=== PATIENT | female | born 2000 | race Two or more races ===

== ENCOUNTER 2025-03-12 05:40 | Day surgery (SDC) | payer MEDICAID, SELFPAY ==
--- NOTE | 2025-03-07 08:04 | EKG_ITS ---
[facility] Test Date: 2025-03-07 Pat Name: VANIA KELLEY Department: Room: - Gender: Female Customer Marketing Assistant: [facility] : 2000 Requested By: Rickey De Los Santos Order Number: [id number] Reading MD: Rickey De Los Santos Measurements Intervals [place] Rate: 80 P: 62 WI: 149 QRS: 31 QRSD: 80 T: 38 QT: 369 QTc: 427 Interpretive Statements SINUS RHYTHM WITH SINUS ARRHYTHMIA No previous ECG available for comparison /store/[id number]/[id number].pdf
[2025-03-07 11:20] VITALS: BMI 33.6
[2025-03-07 11:59] LABS: Collection Type, Urine Clean Catch
[2025-03-07 13:16] LABS: HCG Qualitative,Urine Negative
[2025-03-07 13:18] LABS: Basophils % (Auto) 0 % (0-2.5); Bilirubin,Urine Negative (Negative); Blood,Urine Negative (Negative); Clarity,Urine Clear (Clear/Hazy); Color,Urine Lt-Yellow (Lt Yel-Yel); Eosinophils # (Auto) 0.2 Thou/mm3 (0.0-0.5); Eosinophils % (Auto) 2 % (0-10); Glucose, Urine Negative (Negative); Hematocrit 38.1 % (36.0-46.0); Hemoglobin 12.8 g/dL (12.0-16.0); Immature Granulocytes % (Auto) 0 % (0-0); Immature Granulocytes Auto 0.02 Thou/mm3 (0.00-0.00); Ketones,Urine Negative (Negative); Leukocyte Esterase,Urine Negative (Negative); Lymphocytes # (Auto) 3.4 Thou/mm3 (1.0-4.8); Lymphocytes % (Auto) 36 % (10-50); Mean Corpuscular HGB Conc 33.6 g/dl (31.0-37.0); Mean Corpuscular Hemoglobin 31.4 pg (25.0-35.0); Mean Corpuscular Volume 94 fL (80-100); Monocytes # (Auto) 0.5 Thou/mm3 (0.0-0.8); Monocytes % (Auto) 5 % (0-12); Neutrophils # (Auto) 5.4 Thou/mm3 (1.8-7.7); Neutrophils % (Auto) 57 % (37-80); Nitrite,Urine Negative (Negative); Nucleated Red Blood Cell % 0 /100 WBC (0); PH,Urine 5.5 (5.0-7.0); Platelet Count 305 Thou/mm3 (140-440); Protein,Urine Negative (Neg - Trace); RBC,Urine 3 /hpf (0-3); RDW Standard Deviation 41.2 fL (36.4-46.3); Red Blood Count 4.07 Miln/mm3 (4.00-5.20); Specific Gravity,Urine 1.019 (1.001-1.035); Squamous Epithelial Cell,Urine 1 /hpf (0-5); Urobilinogen,Urine Negative mg/dL (0.0-1.0); WBC,Urine 1 /hpf (0-5); White Blood Count 9.4 Thou/mm3 (3.6-11.0)
[2025-03-07 13:48] LABS: Alanine Aminotransferase 14 U/L (10-49); Albumin, Serum 4.3 gm/dL (3.5-5.0); Albumin/Globulin Ratio 1.7 (1.2-2.2); Alkaline Phosphatase 70 U/L (46-116); Anion Gap 10 (7-16); Aspartate Amino Transferase 15 U/L (0-34); BUN/Creatinine Ratio 12 Ratio (12-20); Bilirubin,Total 0.4 mg/dL (0.3-1.2); Blood Urea Nitrogen 7 mg/dL (9-23); Calcium 8.7 mg/dL (8.3-10.6); Calcium (Corrected) 8.7 mg/dL (8.5-10.1); Carbon Dioxide 23.6 mMol/L (20.0-31.0); Chloride 108 mMol/L (98-107); Creatinine (Component) 0.6 mg/dL (0.6-1.3); Globulin 2.6 gm/dL (2.3-3.5); Glucose 95 mg/dL (74-106); Osmolality,Calculated 281 (275-295); Potassium 3.6 mMol/L (3.4-5.1); Sodium 142 mMol/L (136-145); Total Protein 6.9 gm/dL (5.7-8.2); eGFR > 60 See Note
[2025-03-12] VITALS (8 sets, daily range): BP systolic 106–130; BP diastolic 72–82; PULSE 96–112; RESP 16–20; TEMP 36.5–36.7; O2SAT 97–100; BMI 33.7
--- NOTE | 2025-03-12 08:59 | SUR.PHASEI ---
0859: Pt. AAOx4, vitals stable, breathing unlabored, no complaint of pain or nausea, dressing to right armpit CDI, no active bleed noted, bilateral radial pulses strong and regular, report received from MD Gautam and Doron JACKSON.
--- NOTE | 2025-03-12 09:02 | ESOP_ITS ---
Date of Procedure 03/12/25 Pre Op Diagnosis Right axillary tail mass painful Post Op Diagnosis Same. Procedure Partial mastectomy right axillary tail dated 03/12/2025 Findings This patient has a 10 cm x 7 cm x 6 cm axillary tail which is quite painful. Patient request removal of the axillary tail mass. Procedure Description The patient is interviewed in the preop area and site and side were marked. The procedure was discussed in great detail with the patient and the family member. All questions were answered and informed consent is obtained. Patient was then taken to the operating room and patient is positioned supine on the operating table. The general anesthesia was administered in a satisfactory manner. Patient is prepped and draped in usual manner. The right axillary tail mass is identified. The flaps were drawn on the axillary breast area and local anesthesia 0.5% Marcaine with epinephrine is infiltrated. Curvilinear elliptical incision is made at base of the axilla. The medial and lateral flaps were developed to the level of the breast and subcutaneous tissue. The flaps are extended as needed. A margin is a included in the resection. Skin were all divided. Care was taken to protect the axillary nerves. The entire mass is removed. Is made above the breast tissue as well as adipose tissue. There was no palpable malignant appearing mass in this excised tissue. After removal of the mass the excision area is examined and there were no palpable suspicious masses in that area. The operative field is thoroughly irrigated and hemostasis is achieved. Specimen is sent off for pathologic examination. The breast tissue and subcutaneous tissues approximated by 3-0 Vicryl interrupted stitches. Skin is approximated by 4-0 Monocryl continuous subcuticular stitches. Steritapes are applied. Patient tolerated the procedure very well complications none. Anesthesia GETA Drains None. Implants None. Pathology / specimen Other (Right axillary breast partial mastectomy) Estimated Blood Loss 5 Condition Stable Disposition PACU Surgeon Rickey De Los Santos MD Surgical Staff Operation Date: 03/12/25 07:30 <No data on this case meets the specified criteria> Pressure Tester Operator CADEN Sanchez RN home care consultant [facility] research food technologist
--- NOTE | 2025-03-12 09:55 | SUR.PHASEII ---
0955: Pt. AAOx4, vitals stable, breathing unlabored, no complaint of pain or nausea, dressing to right armpit CDI, no active bleed noted, pt. tolerated sips fo water well, pt. ambulated to wheelchair with steady gait and no assist, no complications. Gave discharge instructions to the pt. and her ride, both verbalized understanding and had no further questions. Pt. left with all personal belongings.
== END 2025-03-12 09:55 | disposition home or self-care (01) ==
PROVIDERS: Anesthesiology; Referring Provider Specialist; Visit Provider Specialist
PROC: (CPT 19301; principal; 2025-03-12 07:30)
DX: N63.31 Unspecified lump in axillary tail of the right breast (principal)
CPT/HCPCS: 19301; 36415; 80053; 81001; 81025; 85025; 85730; 93005; A4217; A4649; J1885; J2250; J2405; J2704; J2765; J3010; J3490

== ENCOUNTER 2025-06-15 09:23 | Outpatient (AMB) | payer MEDICAID, SELFPAY ==
--- NOTE | 2025-06-15 09:55 | AMB.OBINITIA ---
Vital Signs 06/15/25 09:56 Height 1.6 m Height Method Measured Weight 88.224 kg Weight Measurement Method Standing Scale BMI 34.4 BP 119/83 Blood Pressure Source Automatic Cuff Blood Pressure Location Right Upper Arm Position Sitting Respiration 17 Pulse 99 Pulse Source Monitor Temp 98.2 F Temp Source Temporal Artery Scan Pulse Oximetry (%) 99 Oxygen Delivery Method Room Air Allergies/Home Meds Allergies & Medications Allergies No Known Allergies Allergy (Verified 06/15/25 09:56) Medication Reconciliation vits no.126-ferrous fum 28 mg iron-folic acid 800 mcg tablet (Classic ) tab PO 06/15/25 [History Confirmed 06/15/25] Intake Visit Data Collection New Patient or Established: Established Patient (seen at [facility] within 3 years) Reason for Visit:: OBI Consent obtained for Telemed Visit: No Seen by Clinical Staff ONLY (RN/MA): No Bulk Picker Required: Yes Bulk Picker's name/title: BIB WILLARD Do You Feel Safe at Home: Yes Authorities Contacted: N/A PCP or OBGYN visit in last 3 months: Yes Date of Last PCP or OBGYN visit: 03/12/25 Hx Now: Yes Are you currently on any form of Control: No Last menstrual period: 03/06/25 Pain Present Currently: No Pain Scale Used: Lopez-Abraham/Numerical Pain scale:: 0 Smoking Status Smoking Status: Never smoker Questionnaires Covid-19 Vaccine Questionnaire Has patient been vacinated for Covid-19 Have you been vacinated for Covid-19: No PHQ-9 PHQ-2 Over the last 2 weeks, how often have you been bothered by any of the following problems? 1. Little interest or pleasure in doing things: not at all 2. Feeling down, depressed, or hopeless: not at all Total score: 0 PHQ-9 3. Trouble falling or staying asleep, or sleeping too much: Not at all 4. Feeling tired or having little energy: Not at all 5. Poor appetite or overeating: Not at all 6. Feeling bad about yourself - or that you are a failure or have let yourself or your family down: Not at all 7. Trouble concentrating on things, such as reading the newspaper or watching television: Not at all 8. Moving or speaking so slowly that other people could have noticed? - Or the opposite - being so fidgety or restless that you have been moving around a lot more than usual: not at all 9. Thoughts that you would be better off or of hurting yourself in some way: Not at all Total score: 0 If you checked off any problems, how difficult have these problems made it for you to do your work, take care of things at home, or get along with other people?: not difficult at all Source: Developed by Drs. Danny Sanchez, Dora Nails, Jerzy Jain and colleagues, with an educational brooke from [employer]. Social History Living Situation History Marital Status: Life Partner Lives With: Family Housing: House Tobacco History Smoking Status: Never smoker Alcohol History Alcohol Intake: Never Domestic Abuse History Do You Feel Safe at Home: Yes [employer]: Past Medical History Past Medical History: Yes Hx Neurological Disorders, No Hx Cardiac Disorders, No Hx Cancer, No Hx Blood Disorders, Yes Hx Gastrointestinal Disorders, No Hx Renal Disease, No Hx Diabetes Mellitus Type 1 and No Hx Diabetes Mellitus Type 2 Office Procedures OB Clinic LOC & Office Proc's Nursing/Assessment Patient Status: Established Patient OB Clinic Nursing Assessment: Medication Reconciliation, Update PMH in EMR and Vital Signs OB Clinic Coordination of Care: Complex Care and Chronic Disease 1-5, Consent,records obtained, informed consent and Education Simp Pt/Fam Special Needs: Heart tones Established Patient Charge Established Patient Point Assignment: 105 Established Patient Point Charge: EP Level 3 (80-115) Results Urine HCG Urine HCG Positive Last Edit by Millie Salas MA on 06/15/25 10:08 Assessment & Plan Diagnosis / Problem List (1) Uterine size date discrepancy : Status: Acute (2) Supervision of high risk , unspecified, first trimester: Status: Acute
[2025-06-15 09:56] VITALS: BP 119/83; PULSE 99; RESP 17; TEMP 36.8; O2SAT 99; BMI 34.4
== END 2025-06-15 10:16 | disposition home or self-care (01) ==
LOC: HODSOBC 09:23
PROVIDERS: Supervising Provider Obstetrics & Gynecology; Visit Provider Obstetrics & Gynecology
DX: O09.891 Supervision of other high risk pregnancies, first trimester (principal); O26.841 Uterine size-date discrepancy, first trimester; Z3A.00 Weeks of gestation of pregnancy not specified
CPT/HCPCS: 99213; G0463

== ENCOUNTER 2025-06-22 15:07 | Emergency (ER) | payer MEDICAID, SELFPAY ==
[2025-06-22 15:53] VITALS: BP 111/75; PULSE 106; RESP 18; TEMP 37.1; O2SAT 99
--- NOTE | 2025-06-22 16:14 | EDNOTE_ITS ---
ED Abdominal Pain RME/HPI General Stated complaint: ABD PAIN Time seen by provider: 06/22/25 16:06 Arrival date/time: 06/22/25 15:07 Source: patient, RN notes reviewed and old records reviewed Mode of arrival: ambulatory Limitations: no limitations RME / HPI RME / HPI narrative: approx 18 weeks gestation presents to ED requesting surgery referral. Patient states she was diagnosed with gallstones during outside ED visit on 05/30. She had follow-up with PCP and OB but has not been referred to a general surgeon. Patient denies abdominal pain at this time. No fever, vomiting or related symptoms reported. No medications or treatments today. Related Data Home Medications ?Medication ?Instructions ?Recorded ?Confirmed vits no.126-ferrous fum tab PO 06/15/2506/15 28 mg iron-folic acid 800 mcg tablet (Classic ) Previous Rx's ?Medication ?Instructions ?Recorded acetaminophen 500 mg tablet 1,000 mg (2 x 500 mg) PO Q 6H PRN 06/22/25 (Tylenol Extra Strength) pain #30 tabs ondansetron 4 mg disintegrating 4 mg PO Q6H PRN nausea and 06/22/25 tablet vomiting #10 tabs Allergies Allergy/AdvReac Type Severity Reaction Status Date / Time No Known Allergies Allergy Verified 06/15/25 09:56 Review of Systems Review of Systems Systems Reviewed: All systems reviewed, normal except as documented Constitutional Constitutional: Denies chills and Denies fever(s) Cardiovascular Cardiovascular: Denies chest pain and Denies dyspnea Respiratory Respiratory: Denies dyspnea Gastrointestinal Gastrointestinal: Denies abdominal pain, Denies loose stools, Denies nausea and Denies vomiting Genitourinary Genitourinary: Denies abnormal vaginal bleeding, Denies dysuria and Denies pelvic pain Past Medical History Surgical History OTHER SURGICAL HX: axillary tail mass removal Social History SMOKING STATUS: Never smoker SUBSTANCE USE: does not use ALCOHOL: Never Past Medical History Comments PMH COMMENT: obesity ED Exam General Limitations: Present no limitations General appearance: Present alert, in no apparent distress and obese Head Head exam: Present atraumatic and normocephalic Eye Eye exam: Present normal appearance, PERRL and EOMI ENT ENT exam: Present normal exam and mucous membranes moist Neck Neck exam: Present normal inspection and full ROM Chest Chest inspection: Present normal inspection and symmetric chest wall rise Respiratory Respiratory exam: Present normal lung sounds bilaterally; Absent respiratory distress Cardiovascular Cardiovascular exam: Present regular rate and normal rhythm Abdominal Exam Abdominal exam: Present soft and other (Gravid uterus, nontender); Absent distention, tenderness, guarding or rebound Extremities Exam Extremities exam: Present normal inspection and full ROM; Absent pedal edema Neurological Exam Neurological exam: Present alert and oriented X3 Psychiatric Psychiatric exam: Present normal affect and normal mood Skin Skin exam: Present warm, dry, intact and normal color Course Quality Measures none Vital Signs Vital signs: Vital Signs Temperature 98.7 F 06/22/25 15:53 Pulse Rate 106 H 06/22/25 15:53 Respiratory Rate 18 06/22/25 15:53 Blood Pressure 111/75 06/22/25 15:53 Pulse Oximetry (%) 99 06/22/25 15:53 Oxygen Delivery Method Room Air 06/22/25 15:53 Abdominal Pain MDM MDM Narrative MDM Narrative:: approx 18 weeks gestation presents to ED requesting surgery referral. Patient states she was diagnosed with gallstones during outside ED visit on 05/30. She had follow-up with PCP and OB but has not been referred to a general surgeon. Patient denies abdominal pain at this time. No fever, vomiting or pr egnancy related symptoms reported. No medications or treatments today. Will refer patient to general surgery. Patient is asymptomatic at this time, denies abdominal pain. Abdomen benign on exam. Recommended Tylenol prn pain. Stable for discharge, RTED precautions given. Patient data External records reviewed:: [facility] previous records (Admission 03/12/2025 for axillary tail mass removal) Clinical information provided by:: patient Social determinants that could affect healthcare access:: other (specify) (Acculturation difficulty) Patient has the following chronic illnesses:: Obesity How is presenting disease/condition affected by chronic disease/condition?: exacerbated by Evaluation data The following diagnostics were reviewed and interpreted by me:: other (specify) (None) Lab and/or radiology exams considered but not ordered:: Gallbladder ultrasound: Patient denies abdominal pain at this time, non-tender abdomen on exam Interpretation Summary: na Medications / Prescriptions Medications or Prescriptions considered but not ordered:: None Medication administrations:: na Consultations Consultation(s) initiated? (list below): No Diagnosis Differential diagnosis abdominal pain: other (Cholelithiasis, cholecystitis, abdominal pain and , gastritis, gastroenteritis, viral illness, pancreatitis) Most likely diagnosis given after review of the tests above:: Cholelithiasis Admission Indicated Admission indicated?: not indicated Admission Request Was there a request for admission?: No Disposition Plan Disposition Plan: Discharge Discharge Attestation Discharge Attestation: The patient and all family members were given an opportunity to ask questions and understood the discharge instructions. Discharge instructions specifically effects, indications for sooner follow up or return to the emergency department, and the expected course of current diagnosis. Patient condition: Stable Discharge Plan Plan Patient Disposition: HOME (Self Care) Patient condition on transfer: Stable Prescriptions/Referrals Prescriptions/Med Rec: New ondansetron 4 mg tablet,disintegrating 4 mg PO Q6H PRN (Reason: nausea and vomiting) Qty: 10 0RF acetaminophen [Tylenol Extra Strength] 500 mg tablet 1,000 mg PO Q6H PRN (Reason: pain) Qty: 30 0RF No Action Classic 28 mg iron- 800 mcg tablet PO Referrals: No Primary/Family,Physician [Primary Care Provider] - In 1 week Katherine Burns MD [Physician] - (Call to schedule an appt.) Problem List Clinical Impression: Gallstones, Second trimester Patient/Caregiver Discharge Instructions Education Materials: ED Abd Pain Preg Gallstones Print Language: Beninese Stand Alone Forms: Rosalee Award Info., Patient Portal Info Letter ANISHA/DONALDO Supervising Physician MARLEY Supervising Physician: Adam
== END 2025-06-22 17:30 | disposition home or self-care (01) ==
LOC: SERX 16:32
PROVIDERS: Emergency Provider Family Medicine
DX: O99.612 Diseases of the digestive system complicating pregnancy, second trimester (principal); K80.20 Calculus of gallbladder without cholecystitis without obstruction; Z3A.18 18 weeks gestation of pregnancy
CPT/HCPCS: 99282

== ENCOUNTER 2025-07-02 09:21 | Outpatient (AMB) | payer MEDICAID, SELFPAY ==
--- NOTE | 2025-07-02 09:38 | OBCLNT_ITS ---
Vital Signs 07/02/25 09:50 Height 1.6 m Height Method Stated Weight 87.09 kg Weight Measurement Method Standing Scale BMI 34.0 BP 116/78 Blood Pressure Source Automatic Cuff Blood Pressure Location Left Upper Arm Position Sitting Respiration 20 Pulse 103 H Pulse Source Monitor Temp 98.3 F Temp Source Oral Pulse Oximetry (%) 98 Oxygen Delivery Method Room Air Allergies/Home Meds Allergies & Medications Allergies No Known Allergies Allergy (Verified 07/02/25 09:50) Medication Reconciliation vits no.126-ferrous fum 28 mg iron-folic acid 800 mcg tablet (Classic ) tab PO 06/15/25 [History Confirmed 07/02/25] acetaminophen 500 mg tablet (Tylenol Extra Strength) 1,000 mg (2 x 500 mg) PO Q6H PRN pain #30 tabs 06/22/25 [Rx Confirmed 07/02/25] ondansetron 4 mg disintegrating tablet 4 mg PO Q6H PRN nausea and vomiting #10 tabs 06/22/25 [Rx Confirmed 07/02/25] Intake Visit Data Collection New Patient or Established: Established Patient (seen at [facility] within 3 years) Reason for Visit:: CARE Seen by Clinical Staff ONLY (RN/MA): No Planer Mill Grader Required: Yes Planer Mill Grader's name/title: LOS JENSEN Do You Feel Safe at Home: Yes Authorities Contacted: N/A PCP or OBGYN visit in last 3 months: Yes Hx Now: Yes Are you currently on any form of Control: No Pain Present Currently: No Pain Scale Used: Lopez-Abraham/Numerical Pain scale:: 0 Smoking Status Smoking Status: Never smoker Questionnaires Covid-19 Vaccine Questionnaire Has patient been vacinated for Covid-19 Have you been vacinated for Covid-19: Yes PHQ-9 PHQ-2 Over the last 2 weeks, how often have you been bothered by any of the following problems? 1. Little interest or pleasure in doing things: not at all 2. Feeling down, depressed, or hopeless: not at all Total score: 0 PHQ-9 3. Trouble falling or staying asleep, or sleeping too much: Not at all 4. Feeling tired or having little energy: Not at all 5. Poor appetite or overeating: Not at all 6. Feeling bad about yourself - or that you are a failure or have let yourself or your family down: Not at all 7. Trouble concentrating on things, such as reading the newspaper or watching television: Not at all 8. Moving or speaking so slowly that other people could have noticed? - Or the opposite - being so fidgety or restless that you have been moving around a lot more than usual: not at all 9. Thoughts that you would be better off or of hurting yourself in some way: Not at all Total score: 0 Source: Developed by Drs. Danny Sanchez, Dora Nails, Jerzy Jain and colleagues, with an educational brooke from [employer]. 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. She is currently 20 weeks and 3 days with an estimated due date of November 16, 2025, based on a previous ultrasound. The patient reports experiencing pain in the right upper quadrant of her abdomen. She visited the [facility] emergency room due to this pain, but states that the doctor there basically censored what she had going on and she just sat there without receiving any blood tests or ultrasounds. Currently, the patient denies any ongoing symptoms, including nausea, vomiting, or difficulty digesting food. Her is progressing, though it is noted that she does not have a proper ultrasound to confirm her dates. The heart rate was measured at 164 beats per minute during this visit. ROS: Gastrointestinal: Positive for right upper quadrant pain. Negative for nausea, vomiting, difficulty digesting food. Care OB Visit Log OB Flowsheet Initial Weight: Not Recorded Date -?-?-?-?-?-?-?-?-?-?-?-?- EGA Weight BP Alb Glu CTX Pres Fundal ht FHR Mov Dilation Station Effacement Hx Notes Visit Note 07/02/25 -?-?-?-?-?-?-?-?-?-?-?-?- 20w 3d 87.09 kg 116/78 absent unknown 162 20w3d with LOWELL 11/16/25 by early US, presents with prior RUQ pain prompting ER visit to [facility], where no imaging or labs were done. Denies ongoing pain, nausea, or GI symptoms. FHR 164, no other complaints. Pl an: Obtain [place] US report, genetic testing to follow once dates confirmed, sign records release; refer to ER if RUQ pain recurs for GB US and OB scan; f/u in 4wks. LOWELL Calculator Estimated Delivery Date Method Current WG Current Estimate 11/16/25 LMP (Certain) 20w 3d Exam General General Appearance: alert, in no apparent distress and healthy appearing Head Head exam: atraumatic Neck Neck exam: Present normal inspection and trachea midline Chest Chest inspection: Present normal inspection and symmetric chest wall rise External exam: Present normal external exam; Absent tenderness Neuro Neurological exam: Present oriented X3 Psych Psychiatric exam: Present normal affect and normal mood Office Procedures OB Clinic LOC & Office Proc's Nursing/Assessment Patient Status: Established Patient OB Clinic Nursing Assessment: Medication Reconciliation, Update PMH in EMR and Vital Signs OB Clinic Coordination of Care: Complex Care and Chronic Disease 1-5, Consent,records obtained, informed consent, Education Simp Pt/Fam, Lab and Imaging orders, Results/Orders obtained and Staff clarify orders Special Needs: Heart tones Established Patient Charge Established Patient Point Assignment: 135 Established Patient Point Charge: EP Level 4 (120-155) Assessment & Plan Diagnosis / Problem List (1) Supervision of high risk , unspecified, first trimester: Status: Acute (2) Uterine size date discrepancy : Status: Acute Plan at 20 weeks and 3 days gestation: - Normal at 20 weeks and 3 days gestation based on early ultrasound with estimated due date of November 16, 2025. - Normal labs obtained, genetic testing pending confirmation of ultrasound dating. - heart rate 164 bpm, within normal range. Plan: - Obtain previous ultrasound report from [facility] to confirm dating. - Order genetic testing once ultrasound dating is confirmed. - Patient to sign release form for medical records. - Provide lab order for genetic testing after reviewing ER ultrasound. - Reassess in 4 weeks. Right upper quadrant pain: - Right upper quadrant pain concerning for possible cholecystitis. - Previously visited ER at [facility] with inadequate evaluation performed. - No current nausea, vomiting, or difficulty digesting food. Plan: - Refer patient to ER for immediate evaluation of right upper quadrant pain. - Request cholecystitis workup including gallbladder ultrasound. - Request obstetric ultrasound to be performed concurrently at ER. - Instructed patient to emphasize ongoing pain to ER staff. - Follow up on ER visit results at next appointment.
[2025-07-02 09:50] VITALS: BP 116/78; PULSE 103; RESP 20; TEMP 36.8; O2SAT 98; BMI 34.0
== END 2025-07-02 10:24 | disposition home or self-care (01) ==
PROVIDERS: Supervising Provider Obstetrics & Gynecology; Visit Provider Obstetrics & Gynecology
DX: O09.892 Supervision of other high risk pregnancies, second trimester (principal); O26.842 Uterine size-date discrepancy, second trimester; O99.891 Other specified diseases and conditions complicating pregnancy; R10.11 Right upper quadrant pain; Z3A.20 20 weeks gestation of pregnancy
CPT/HCPCS: 99214; G0463

== ENCOUNTER 2025-07-02 10:47 | Emergency (ER) | payer MEDICAID, SELFPAY ==
[2025-07-02 11:20] VITALS: BP 108/74; PULSE 100; RESP 16; TEMP 37.4; O2SAT 98
--- NOTE | 2025-07-02 11:25 | XR_ITS ---
Examination: Complete OB ultrasound greater than 14 weeks Date and time of exam: July 02, 2025, 1204 hours INDICATIONS: Onset right upper abdominal pain today Findings: Viable intrauterine single fetus with single amniotic sac presentation transverse. Cardiac motion 137 BPM Placenta anterior grade 1. Umbilical cord insertion 3 vessel seen. Amniotic fluid index 12.0 cm. Cervix 3.0 cm Right ovary 3.4 cm arterial flow. Left ovary 3.1 cm arterial flow. Composite estimated gestational age based on BPD, head circumference, abdominal circumference, femur length is 20 weeks 5 days Estimated weight 403 g. Survey of intracranial anatomy, spinal anatomy, abdominal anatomy, four-chamber heart performed with no abnormalities identified. Impression: Viable intrauterine gestation transverse presentation.
--- NOTE | 2025-07-02 11:27 | PD.EDABDPN ---
ED Abdominal Pain RME/HPI General Chief Complaint: Abdominal Pain Stated complaint: RUQ ABD PAIN, PREG 20W3D; SENT BY DR ERNANDEZ Time seen by provider: 07/02/25 10:59 Arrival date/time: 07/02/25 10:47 Limitations: no limitations RME / HPI RME / HPI narrative: 20 week female here today with right sided abdominal pain that started this morning. She is g4a1p2. She has no vomiting or diarrhea. She denies any dysuria, vaginal discharge, or hematuria. She has no back pain. No fevers or chills. She has no other acute complaints or concerns. Related Data Home Medications ?Medication ?Instructions ?Recorded ?Confirmed vits no.126-ferrous fum tab PO 06/15/25 07/02/25 28 mg iron-folic acid 800 mcg tablet (Classic ) Previous Rx's ?Medication ?Instructions ?Recorded acetaminophen 500 mg tablet 1,000 mg (2 x 500 mg) PO Q6H PRN 06/22/25 (Tylenol Extra Strength) pain #30 tabs ondansetron 4 mg disintegrating 4 mg PO Q6H PRN nausea and 06/22/25 tablet vomiting #10 tabs Allergies Allergy/AdvReac Type Severity Reaction Status Date / Time No Known Allergies Allergy Verified 07/02/25 10:51 Review of Systems Review of Systems Systems Reviewed: All systems reviewed, normal except as documented ED Exam General Limitations: Present no limitations General appearance: Present alert and in no apparent distress Head Head exam: Present atraumatic Eye Eye exam: Present normal appearance, PERRL and EOMI ENT ENT exam: Present normal exam, normal oropharynx and mucous membranes moist Neck Neck exam: Present normal inspection, full ROM and trachea midline Chest Chest inspection: Present normal inspection and symmetric chest wall rise Respiratory Respiratory exam: Present normal lung sounds bilaterally Cardiovascular Cardiovascular exam: Present regular rate, normal rhythm and normal heart sounds Abdominal Exam Abdominal exam: Present soft; Absent tenderness or guarding Extremities Exam Extremities exam: Present normal inspection and full ROM Back Exam Back exam: Present normal inspection and full ROM Neurological Exam Neurological exam: Present alert and oriented X3 Psychiatric Psychiatric exam: Present normal affect and normal mood Skin Skin exam: Present warm, dry, intact and normal color Course Quality Measures none Orders Category Date Time Status US OB >= 14 weeks Fetus Stat Exams 07/02/25 11:25 Completed Beta HCG,Quantitative Stat Lab 07/02/25 11:38 Completed CBC Stat Lab 07/02/25 11:38 Completed CMP [Comprehensive Metabolic Panel] Stat Lab 07/02/25 11:38 Completed Type and Screen Stat Lab 07/02/25 11:38 Completed UA, C/S IF [Urinalysis, C/S if Indicated] Stat Lab 07/02/25 12:30 Completed Urine Culture Stat Lab 07/02/25 12:30 Received Vital Signs Vital signs: Vital Signs Temperature 99.4 F 07/02/25 11:20 Pulse Rate 100 07/02/25 11:20 Respiratory Rate 16 07/02/25 11:20 Blood Pressure 108/74 07/02/25 11:20 Pulse Oximetry (%) 98 07/02/25 11:20 Oxygen Delivery Method Room Air 07/02/25 11:20 Abdominal Pain MDM MDM Narrative MDM Narrative:: 20 week female here today with right sided abdominal pain that started this morning. She is g4a1p2. She has no vomiting or diarrhea. She denies any dysuria, vaginal discharge, or hematuria. She has no back pain. No fevers or chills. She has no other acute complaints or concerns. On exam, patient is nontoxic-appearing in no visible signs stress. Vital signs are stable. She has no abdominal guarding. She has no leukocytosis or recent anemia. Metabolic panel reveals no derangement. Urinalysis does show 9 squamous epithelial cells [place], 2+ bacteria, there are no erythrocytes, there are 3 leukocytes per field. I believe this reflects a contaminated sample and not a UTI. OB ultrasound was obtained and there is a heart rate of 137, it is unremarkable. Results were discussed with the patient. I pena believe she be further managed as an outpatient. She agrees to follow-up with her primary doctor as needed. Use Tylenol as needed. Return here at anytime for any worsening or emergent changes. Patient data External records reviewed:: None Clinical information provided by:: patient Social determinants that could affect healthcare access:: none Patient has the following chronic illnesses:: n/a How is presenting disease/condition affected by chronic disease/condition?: uneffected by Evaluation data The following diagnostics were reviewed and interpreted by me:: lab results and radiology exam(s) Lab and/or radiology exams considered but not ordered:: n/a Interpretation Summary: Workup was unremarkable Medications / Prescriptions Medications or Prescriptions considered but not ordered:: n/a Medication administrations:: n/a Consultations Consultation(s) initiated? (list below): No Diagnosis Differential diagnosis abdominal pain: abdominal pain and gastroenteritis Most likely diagnosis given after review of the tests above:: Discomfort of Admission Indicated Admission indicated?: not indicated Admission Request Was there a request for admission?: No Disposition Plan Disposition Plan: Discharge Discharge Attestation Discharge Attestation: The patient and all family members were given an opportunity to ask questions and understood the discharge instructions. Discharge instructions specifically effects, indications for sooner follow up or return to the emergency department, and the expected course of current diagnosis. Patient condition: Stable Discharge Plan Plan Patient Disposition: HOME (Self Care) Patient condition on transfer: Stable Prescriptions/Referrals Prescriptions/Med Rec: No Action Classic 28 mg iron- 800 mcg tablet PO ondansetron 4 mg tablet,disintegrating 4 mg PO Q6H PRN (Reason: nausea and vomiting) Qty: 10 0RF acetaminophen [Tylenol Extra Strength] 500 mg tablet 1,000 mg PO Q6H PRN (Reason: pain) Qty: 30 0RF Problem List Clinical Impression: Discomfort during Patient/Caregiver Discharge Instructions Education Materials: Comfort Tips During Additional Instructions: - Maintain oral hydration - Use Tylenol for discomfort. - Follow-up with your primary doctor and SPANISH INTERPRETER as soon as possible. - Please return to the emergency room at anytime for any worsening or emergent changes. Print Language: Pashto Stand Alone Forms: Rosalee Award Info., Patient Portal Info Letter
[2025-07-02 11:52] LABS: Basophils # (Auto) 0.0 Thou/mm3 (0.0-0.2); Basophils % (Auto) 0 % (0-2.5); Eosinophils # (Auto) 0.1 Thou/mm3 (0.0-0.5); Eosinophils % (Auto) 1 % (0-10); Hematocrit 36.2 % (36.0-46.0); Hemoglobin 12.4 g/dL (12.0-16.0); Immature Granulocytes Auto 0.04 Thou/mm3 (0.00-0.00); Lymphocytes # (Auto) 2.7 Thou/mm3 (1.0-4.8); Lymphocytes % (Auto) 26 % (10-50); Mean Corpuscular HGB Conc 34.3 g/dl (31.0-37.0); Mean Corpuscular Hemoglobin 32.0 pg (25.0-35.0); Mean Corpuscular Volume 94 fL (80-100); Monocytes # (Auto) 0.4 Thou/mm3 (0.0-0.8); Monocytes % (Auto) 4 % (0-12); Neutrophils # (Auto) 7.3 Thou/mm3 (1.8-7.7); Neutrophils % (Auto) 69 % (37-80); Nucleated Red Blood Cell # 0.00 Thou/mm3 (0.00-0.00); Nucleated Red Blood Cell % 0 /100 WBC (0); Platelet Count 261 Thou/mm3 (140-440); RDW Standard Deviation 45.0 fL (36.4-46.3); Red Blood Count 3.87 Miln/mm3 (4.00-5.20); White Blood Count 10.6 Thou/mm3 (3.6-11.0)
[2025-07-02 12:17] LABS: Alanine Aminotransferase 30 U/L (10-49); Albumin, Serum 4.0 gm/dL (3.5-5.0); Albumin/Globulin Ratio 1.7 (1.2-2.2); Alkaline Phosphatase 84 U/L (46-116); Anion Gap 10 (7-16); Aspartate Amino Transferase 19 U/L (0-34); BUN/Creatinine Ratio 13 Ratio (12-20); Bilirubin,Total 0.3 mg/dL (0.3-1.2); Blood Urea Nitrogen < 5 mg/dL (9-23); Calcium 9.4 mg/dL (8.3-10.6); Calcium (Corrected) 9.4 mg/dL (8.5-10.1); Carbon Dioxide 23.3 mMol/L (20.0-31.0); Chloride 106 mMol/L (98-107); Creatinine (Component) 0.4 mg/dL (0.6-1.3); Globulin 2.3 gm/dL (2.3-3.5); Glucose 88 mg/dL (74-106); Osmolality,Calculated 273 (275-295); Potassium 3.4 mMol/L (3.4-5.1); Sodium 139 mMol/L (136-145); Total Protein 6.3 gm/dL (5.7-8.2); eGFR > 60 See Note
[2025-07-02 12:47] LABS: Beta HCG,Quantitative 36618 mIU/mL (<5.0)
[2025-07-02 13:01] LABS: Collection Type, Urine Voided; RBC,Urine 0 /hpf (0-3)
[2025-07-02 13:49] LABS: Bacteria,Urine 2+; Bilirubin,Urine Negative (Negative); Blood,Urine Negative (Negative); Clarity,Urine Turbid (Clear/Hazy); Color,Urine Yellow (Lt Yel-Yel); Culture Indicated,Urine Yes; Glucose, Urine Negative (Negative); Ketones,Urine 2+ (Negative); Leukocyte Esterase,Urine Negative (Negative); Nitrite,Urine Negative (Negative); PH,Urine 6.0 (5.0-7.0); Protein,Urine 1+ (Neg - Trace); Specific Gravity,Urine 1.029 (1.001-1.035); Squamous Epithelial Cell,Urine 9 /hpf (0-5); Urobilinogen,Urine Negative mg/dL (0.0-1.0); WBC,Urine 3 /hpf (0-5)
== END 2025-07-02 19:33 | disposition home or self-care (01) ==
PROVIDERS: Physician Assistant Medical; Emergency Provider Emergency Medicine
DX: O26.892 Other specified pregnancy related conditions, second trimester (principal); Z3A.20 20 weeks gestation of pregnancy; R10.9 Unspecified abdominal pain
CPT/HCPCS: 36415; 76805; 80053; 81001; 84702; 85025; 86850; 86900; 86901; 87086; 99283

== ENCOUNTER 2025-08-16 15:09 | Outpatient (AMB) | payer MEDICAID, SELFPAY ==
--- NOTE | 2025-08-16 15:22 | OBCLNT_ITS ---
Vital Signs 08/16/25 15:32 Height 1.6 m Height Method Stated Weight 89.471 kg Weight Measurement Method Standing Scale BMI 34.9 BP 121/81 Blood Pressure Source Automatic Cuff Blood Pressure Location Left Upper Arm Position Sitting Respiration 16 Pulse 98 Pulse Source Monitor Temp 97.2 F Temp Source Oral Pulse Oximetry (%) 98 Oxygen Delivery Method Room Air Allergies/Home Meds Allergies & Medications Allergies No Known Allergies Allergy (Verified 09/13/25 15:41) Medication Reconciliation vits no.126-ferrous fum 28 mg iron-folic acid 800 mcg tablet (Classic ) tab PO 06/15/25 [History Confirmed 09/13/25] vits no.126-ferrous fum 28 mg iron-folic acid 800 mcg tablet (Classic ) 1 tab PO QDAY 90 days #90 tabs 08/16/25 [Rx Confirmed 09/13/25] Intake Visit Data Collection New Patient or Established: Established Patient (seen at [facility] within 3 years) Reason for Visit:: OBC Seen by Clinical Staff ONLY (RN/MA): No 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 1. Little interest or pleasure in doing things: not at all 2. Feeling down, depressed, or hopeless: not at all Total score: 0 PHQ-9 3. Trouble falling or staying asleep, or sleeping too much: Not at all 4. Feeling tired or having little energy: Not at all 5. Poor appetite or overeating: Not at all 6. Feeling bad about yourself - or that you are a failure or have let yourself or your family down: Not at all 7. Trouble concentrating on things, such as reading the newspaper or watching television: Not at all 8. Moving or speaking so slowly that other people could have noticed? - Or the opposite - being so fidgety or restless that you have been moving around a lot more than usual: not at all 9. Thoughts that you would be better off or of hurting yourself in some way: Not at all Total score: 0 If you checked off any problems, how difficult have these problems made it for you to do your work, take care of things at home, or get along with other people?: not difficult at all Source: Developed by Drs. Danny Sanchez, Dora Nails, Jerzy Jain and colleagues, with an educational brooke from [employer] 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 - She reports that pain she was previous ly experiencing is now better and denies current pain. - Patient reports the baby is active. - She denies contractions, cramping, or other issues. - Genetic testing to be performed - Gender testing to be performed - Glucose test ordered - patient to fast for at least 8 hours prior to test - High-level ultrasound referral placed for [place] (approximately one month out, patient will be called) - vitamins prescribed with mult iple refills to [facility] - Lab orders to be provided - Follow-up appointment scheduled in one month - After next visit, appointments will be come every 2 weeks 07/02/25 -?-?-?-?-?-?-?-?-?-?-?-?- 20w 3d 87.09 kg 116/78 absent unknown 162 20w3d with LOWELL 11/16/25 by early US, presents with prior RUQ pain prompting ER visit to [facility], where no imaging or labs were done. Denies ongoing pain, nausea, or GI symptoms. FHR 164, no other complaints. Pl an: Obtain [place] US report, genetic testing to follow once dates confirmed, sign records release; refer to ER if RUQ pain recurs for GB US and OB scan; f/u in 4wks. 08/16/25 -?-?-?-?-?-?-?-?-?-?-?-?- 26w 6d 89.471 kg 121/81 absent unknown 27 155 - Toshia Reich is here for a routine visit. - She reports experiencing pressure in t he lower part of her abdomen, which is attributed to pressure from the baby's head. - She denies any contractions or other p roblems. - She denies burning with urination. - She reports taking vitamins as prescribed. - Laboratory test to be completed 1-2 days before next appointment in 2 weeks - Continue vitamins - Follow up in 2 weeks LOWELL Calculator Estimated Delivery Date Method Current WG Current Estimate 11/16/25 LMP (Certain) 32w 1d Other Estimates 11/10/25 Ultrasound #1 33w 0d Office Procedures OBC Clinic LOC & Office Proc's Nursing/Assessment Patient Status: Established Patient OB Clinic Nursing Assessment: Medication Reconciliation, Update PMH in EMR and Vital Signs OB Clinic Coordination of Care: Education Complex Pt/Fam, Consent,records obtained, informed consent, Lab and Imaging orders, Results/Orders obtained and Staff clarify orders Special Needs: Heart tones Established Patient Charge Established Patient Point Assignment: 115 Established Patient Point Charge: EP Level 3 (80-115) Assessment & Plan Diagnosis / Problem List (1) Uterine size date discrepancy : Status: Acute (2) Supervision of high risk , unspecified, first trimester: Status: Acute
[2025-08-16 15:32] VITALS: BP 121/81; PULSE 98; RESP 16; TEMP 36.2; O2SAT 98; BMI 34.9
== END 2025-08-16 15:49 | disposition home or self-care (01) ==
PROVIDERS: Supervising Provider Obstetrics & Gynecology; Visit Provider Obstetrics & Gynecology
DX: O09.892 Supervision of other high risk pregnancies, second trimester (principal); O26.842 Uterine size-date discrepancy, second trimester; Z3A.26 26 weeks gestation of pregnancy
CPT/HCPCS: 99213; G0463

== ENCOUNTER 2025-09-13 15:14 | Outpatient (AMB) | payer MEDICAID, SELFPAY ==
[2025-09-13 15:22] VITALS: BP 116/78; PULSE 95; RESP 18; TEMP 36.6; O2SAT 99; BMI 36.1
--- NOTE | 2025-09-13 15:22 | OBCLNT_ITS ---
Vital Signs 09/13/25 15:22 Height 1.6 m Height Method Stated Weight 92.533 kg Weight Measurement Method Standing Scale BMI 36.1 BP 116/78 Blood Pressure Source Automatic Cuff Blood Pressure Location Right Upper Arm Position Sitting Respiration 18 Pulse 95 Pulse Source Monitor Temp 97.9 F Temp Source Temporal Artery Scan Pulse Oximetry (%) 99 Oxygen Delivery Method Room Air Allergies/Home Meds Allergies & Medications Allergies No Known Allergies Allergy (Verified 10/16/25 16:09) Medication Reconciliation vits no.126-ferrous fum 28 mg iron-folic acid 800 mcg tablet (Classic ) tab PO 06/15/25 [History Confirmed 10/16/25] vits no.126-ferrous fum 28 mg iron-folic acid 800 mcg tablet (Classic ) 1 tab PO QDAY 90 days #90 tabs 08/16/25 [Rx Confirmed 10/16/25] Intake Visit Data Collection New Patient or Established: Established Patient (seen at [facility] within 3 years) Reason for Visit:: OBC Seen by Clinical Staff ONLY (RN/MA): No Health Diagnostics Teacher Required: Yes Health Diagnostics Teacher's name/title: LOS JENSEN MA Do You Feel Safe at Home: Yes Authorities Contacted: N/A PCP or OBGYN visit in last 3 months: Yes Date of Last PCP or OBGYN visit: 08/16/25 Hx Now: Yes Are you currently on any form of Control: No Pain Present Currently: No Pain Scale Used: Lopez-Abraham/Numerical Pain scale:: 0 Smoking Status Smoking Status: Never smoker Immunizations Flu Vaccine in the Last 12 Months: No Flu Vaccine Exclusion Criteria: No Exclusion Criteria Questionnaires Covid-19 Vaccine Questionnaire Has patient been vacinated for Covid-19 Have you been vacinated for Covid-19: No PHQ-9 PHQ-2 Over the last 2 weeks, how often have you been bothered by any of the following problems? 1. Little interest or pleasure in doing things: not at all 2. Feeling down, depressed, or hopeless: not at all Total score: 0 PHQ-9 3. Trouble falling or staying asleep, or sleeping too much: Not at all 4. Feeling tired or having little energy: Not at all 5. Poor appetite or overeating: Not at all 6. Feeling bad about yourself - or that you are a failure or have let yourself or your family down: Not at all 7. Trouble concentrating on things, such as reading the newspaper or watching television: Not at all 8. Moving or speaking so slowly that other people could have noticed? - Or the opposite - being so fidgety or restless that you have been moving around a lot more than usual: not at all 9. Thoughts that you would be better off or of hurting yourself in some way: Not at all Total score: 0 If you checked off any problems, how difficult have these problems made it for you to do your work, take care of things at home, or get along with other people?: not difficult at all Source: Developed by Drs. Danny Sanchez, Dora Nails, Jerzy Jain and colleagues, with an educational brooke from [employer]. 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 - She reports that pain she was previous ly experiencing is now better and denies current pain. - Patient reports the baby is active. - She denies contractions, cramping, or other issues. - Genetic testing to be performed - Gender testing to be performed - Glucose test ordered - patient to fast for at least 8 hours prior to test - High-level ultrasound referral placed for [place] (approximately one month out, patient will be called) - vitamins prescribed with mult iple refills to [facility] - Lab orders to be provided - Follow-up appointment scheduled in one month - After next visit, appointments will be come every 2 weeks 07/02/25 -?-?-?-?-?-?-?-?-?-?-?-?- 20w 3d 87.09 kg 116/78 absent unknown 162 20w3d with LOWELL 11/16/25 by early US, presents with prior RUQ pain prompting ER visit to [facility], where no imaging or labs were done. Denies ongoing pain, nausea, or GI symptoms. FHR 164, no other complaints. Pl an: Obtain [place] US report, genetic testing to follow once dates confirmed, sign records release; refer to ER if RUQ pain recurs for GB US and OB scan; f/u in 4wks. 08/16/25 -?-?-?-?-?-?-?-?-?-?-?-?- 26w 6d 89.471 kg 121/81 absent unknown 27 155 - Toshia Reich is here for a routine visit. - She reports experiencing pressure in t he lower part of her abdomen, which is attributed to pressure from the baby's head. - She denies any contractions or other p roblems. - She denies burning with urination. - She reports taking vitamins as prescribed. - Laboratory test to be completed 1-2 days before next appointment in 2 weeks - Continue vitamins - Follow up in 2 weeks 09/13/25 -?-?-?-?-?-?-?-?-?-?-?-?- 30w 6d 92.533 kg 116/78 absent unknown 31 146 - Toshia Reich is here for a routine visit. - She reports experiencing pressure in t he lower part of her abdomen, which is attributed to pressure from the baby's head. - She denies any contractions or other p roblems. - She denies burning with urination. - She reports taking vitamins as prescribed. - Laboratory test to be completed 1-2 days before next appointment in 2 weeks - Continue vitamins - Follow up in 2 weeks 10/16/25 -?-?-?-?-?-?-?-?-?-?-?-?- 35w 4d 95.368 kg 120/83 absent unknown 35 156 - She reports the baby is active. - She denies leaking, bleeding, or other problems. - She reports clear mucus discharge, whi ch she was told is completely normal. - She denies any pain or contractions. - Weekly visits starting now at 34 weeks gestation - Check for cervical dilation at 39 week s (one week before due date) - Vaginal culture performed today - Patient instructed to go to [facility] 4th floor for any contractions or labor concerns (31/05 availability) - Levothyroxine 25mcg continued LOWELL Calculator Estimated Delivery Date Method Current WG Current Estimate 11/16/25 LMP (Certain) 37w 6d Other Estimates 11/10/25 Ultrasound #1 38w 5d Office Procedures OBC Clinic LOC & Office Proc's Nursing/Assessment Patient Status: Established Patient OB Clinic Nursing Assessment: Medication Reconciliation, Update PMH in EMR and Vital Signs OB Clinic Coordination of Care: Complex Care and Chronic Disease 1-5, Education Complex Pt/Fam, Consent,records obtained, informed consent, Results/Orders obtained and Staff clarify orders Special Needs: Heart tones Established Patient Charge Established Patient Point Assignment: 125 Established Patient Point Charge: EP Level 4 (120-155) Assessment & Plan Diagnosis / Problem List (1) Uterine size date discrepancy : Status: Acute (2) Supervision of high risk , unspecified, first trimester: Status: Acute Plan Plan - Laboratory test to be completed 1-2 days before next appointment in 2 weeks - Continue vitamins - Follow up in 2 weeks 1. Progress Reviewed gestational age, growth, and heart rate. Planned frequent visits (every 2 weeks until 36 weeks, then weekly). 2. Instructed patient to monitor movements and report decreases immediately. 3. Testing Counseled on routine third-trimester labs per guidelines. Discussed potential need for ultrasound or monitoring based on risk factors. 4. Preeclampsia Precaution Educated on preeclampsia signs: severe headache, vision changes, right upper quadrant pain, sudden swelling. Advised urgent reporting of symptoms and discussed blood pressure monitoring if high risk. 5. Labor Precautions Reviewed labor signs: regular contractions, pelvic pressure, back pain, bleeding, or fluid leakage. Instructed to seek immediate care for these symptoms. 6. Lifestyle and Delivery Preparation Reinforced vitamins, nutrition, and safe activity. Discussed plan, pain management, and . Advised on labor preparation (e.g., hospital bag) and expectations. 7. Psychosocial Support Assessed emotional well-being and offered resources for mental health or parenting support.
== END 2025-09-13 15:34 | disposition home or self-care (01) ==
LOC: HODSOBC 15:14
PROVIDERS: Supervising Provider Obstetrics & Gynecology; Visit Provider Obstetrics & Gynecology
DX: O09.893 Supervision of other high risk pregnancies, third trimester (principal); O26.843 Uterine size-date discrepancy, third trimester; Z3A.30 30 weeks gestation of pregnancy
CPT/HCPCS: 99214; G0463

== ENCOUNTER 2025-09-27 13:08 | Outpatient (AMB) | payer MEDICAID, SELFPAY ==
--- NOTE | 2025-09-27 13:24 | OBCLNT_ITS ---
Vital Signs 09/27/25 13:32 Height 1.6 m Height Method Stated Weight 94.801 kg Weight Measurement Method Standing Scale BMI 37.0 BP 113/78 Blood Pressure Source Automatic Cuff Blood Pressure Location Left Upper Arm Position Sitting Respiration 18 Pulse 99 Pulse Source Monitor Temp 97.8 F Temp Source Oral Pulse Oximetry (%) 98 Oxygen Delivery Method Room Air Allergies/Home Meds Allergies & Medications Allergies No Known Allergies Allergy (Verified 10/16/25 16:09) Medication Reconciliation vits no.126-ferrous fum 28 mg iron-folic acid 800 mcg tablet (Classic ) tab PO 06/15/25 [History Confirmed 10/16/25] vits no.126-ferrous fum 28 mg iron-folic acid 800 mcg tablet (Classic ) 1 tab PO QDAY 90 days #90 tabs 08/16/25 [Rx Confirmed 10/16/25] Immunizations Immunizations Flu Vaccine in the Last 12 Months: No Flu Vaccine Exclusion Criteria: Refused by Patient Care OB Visit Log OB Flowsheet Initial Weight: Not Recorded Date -?-?-?-?-?-?-?-?-?-?-?-?- EGA Weight BP Alb Glu CTX Pres Fundal ht FHR Mov Dilation Station Effacement Hx Notes Visit Note 06/15/25 -?-?-?-?-?-?-?-?-?-?-?-?- 18w 0d 88.224 kg 119/83 absent unknown 145 - Toshia Reich is a female presenting for routine care follow-up. - She reports that pain she was previous ly experiencing is now better and denies current pain. - Patient reports the baby is active. - She denies contractions, cramping, or other issues. - Genetic testing to be performed - Gender testing to be performed - Glucose test ordered - patient to fast for at least 8 hours prior to test - High-level ultrasound referral placed for [place] (approximately one month out, patient will be called) - vitamins prescribed with mult iple refills to [facility] - Lab orders to be provided - Follow-up appointment scheduled in one month - After next visit, appointments will be come every 2 weeks 07/02/25 -?-?-?-?-?-?-?-?-?-?-?-?- 20w 3d 87.09 kg 116/78 absent unknown 162 20w3d with LOWELL 11/16/25 by early US, presents with prior RUQ pain prompting ER visit to [facility], where no imaging or labs were done. Denies ongoing pain, nausea, or GI symptoms. FHR 164, no other complaints. Pl an: Obtain [place] US report, genetic testing to follow once dates confirmed, sign records release; refer to ER if RUQ pain recurs for GB US and OB scan; f/u in 4wks. 08/16/25 -?-?-?-?-?-?-?-?-?-?-?-?- 26w 6d 89.471 kg 121/81 absent unknown 27 155 - Toshia Reich is here for a routine visit. - She reports experiencing pressure in t he lower part of her abdomen, which is attributed to pressure from the baby's head. - She denies any contractions or other p roblems. - She denies burning with urination. - She reports taking vitamins as prescribed. - Laboratory test to be completed 1-2 days before next appointment in 2 weeks - Continue vitamins - Follow up in 2 weeks 09/13/25 -?-?-?-?-?-?-?-?-?-?-?-?- 30w 6d 92.533 kg 116/78 absent unknown 31 146 - Toshia Reich is here for a routine visit. - She reports experiencing pressure in t he lower part of her abdomen, which is attributed to pressure from the baby's head. - She denies any contractions or other p roblems. - She denies burning with urination. - She reports taking vitamins as prescribed. - Laboratory test to be completed 1-2 days before next appointment in 2 weeks - Continue vitamins - Follow up in 2 weeks 09/27/25 -?-?-?-?-?-?-?-?-?-?-?--?- 32w 6d 94.801 kg 113/78 absent unknown 32 145 - Toshia Reich is here for a routine visit. - She reports that the baby is moving we ll. - She denies contractions. - She reports leg pain described as musc le cramping. - She denies other problems. - Follow up in 2 weeks - Increase water intake for muscle cramp ing 10/16/25 -?-?-?-?-?-?-?-?-?-?-?-?- 35w 4d 95.368 kg 120/83 absent unknown 35 156 - She reports the baby is active. - She denies leaking, bleeding, or other problems. - She reports clear mucus discharge, whi ch she was told is completely normal. - She denies any pain or contractions. - Weekly visits starting now at 34 weeks gestation - Check for cervical dilation at 39 week s (one week before due date) - Vaginal culture performed today - Patient instructed to go to [facility] 4th floor for any contractions or labor concerns (31/05 availability) - Levothyroxine 25mcg continued LOWELL Calculator Estimated Delivery Date Method Current WG Current Estimate 11/16/25 LMP (Certain) 37w 6d Other Estimates 11/10/25 Ultrasound #1 38w 5d Office Procedures [facility] LOC & Office Proc's Nursing/Assessment Patient Status: Established Patient OB Clinic Nursing Assessment: Medication Reconciliation, Update PMH in EMR and Vital Signs OB Clinic Coordination of Care: Complex Care and Chronic Disease 1-5, Consent,records obtained, informed consent, Education Simp Pt/Fam, 1 Ins Authorization, Lab and Imaging orders, Results/Orders obtained and Staff clarify orders Special Needs: Heart tones Established Patient Charge Established Patient Point Assignment: 150 Established Patient Point Charge: EP Level 4 (120-155) Assessment & Plan Diagnosis / Problem List (1) Supervision of high risk , unspecified, first trimester: Status: Acute (2) Uterine size date discrepancy : Status: Acute Plan Problem List - Muscle cramping Assessment Patient reports leg pain/cramping, which appears to be related to muscle cramping. Recent laboratory results from September 22 show negative anemia screen and negative syphilis test. Patient reports movement with no contractions or other problems. heart rate is 145 bpm, which is within normal range. Plan - Follow up in 2 weeks - Increase water intake for muscle cramping 1. Progress Reviewed gestational age, growth, and heart rate. Planned frequent visits (every 2 weeks until 36 weeks, then weekly). 2. Instructed patient to monitor movements and report decreases immediately. 3. Testing Counseled on routine third-trimester labs per guidelines. Discussed potential need for ultrasound or monitoring based on risk factors. 4. Preeclampsia Precaution Educated on preeclampsia signs: severe headache, vision changes, right upper quadrant pain, sudden swelling. Advised urgent reporting of symptoms and discussed blood pressure monitoring if high risk. 5. Labor Precautions Reviewed labor signs: regular contractions, pelvic pressure, back pain, bleeding, or fluid leakage. Instructed to seek immediate care for these symptoms. 6. Lifestyle and Delivery Preparation Reinforced vitamins, nutrition, and safe activity. Discussed plan, pain management, and . Advised on labor preparation (e.g., hospital bag) and expectations. 7. Psychosocial Support Assessed emotional well-being and offered resources for mental health or parenting support.
[2025-09-27 13:32] VITALS: BP 113/78; PULSE 99; RESP 18; TEMP 36.6; O2SAT 98; BMI 37.0
== END 2025-09-27 13:58 | disposition home or self-care (01) ==
LOC: HODSOBC 13:08
PROVIDERS: Supervising Provider Obstetrics & Gynecology; Visit Provider Obstetrics & Gynecology
DX: O09.893 Supervision of other high risk pregnancies, third trimester (principal); O26.843 Uterine size-date discrepancy, third trimester; O99.891 Other specified diseases and conditions complicating pregnancy; R25.2 Cramp and spasm; Z3A.32 32 weeks gestation of pregnancy; Z28.21 Immunization not carried out because of patient refusal
CPT/HCPCS: 99214; G0463

== ENCOUNTER 2025-10-16 15:19 | Outpatient (AMB) | payer MEDICAID, SELFPAY ==
[2025-10-16 16:08] VITALS: BP 120/83; PULSE 95; RESP 18; TEMP 36.7; O2SAT 98; BMI 37.2
--- NOTE | 2025-10-16 16:08 | AMB.OBPNC ---
Vital Signs 10/16/25 16:08 Height 1.6 m Height Method Stated Weight 95.368 kg Weight Measurement Method Standing Scale BMI 37.2 BP 120/83 Blood Pressure Source Automatic Cuff Blood Pressure Location Right Upper Arm Position Sitting Respiration 18 Pulse 95 Pulse Source Monitor Temp 98.0 F Temp Source Temporal Artery Scan Pulse Oximetry (%) 98 Oxygen Delivery Method Room Air Allergies/Home Meds Allergies & Medications Allergies No Known Allergies Allergy (Verified 10/16/25 16:09) Medication Reconciliation vits no.126-ferrous fum 28 mg iron-folic acid 800 mcg tablet (Classic ) tab PO 06/15/25 [History Confirmed 10/16/25] vits no.126-ferrous fum 28 mg iron-folic acid 800 mcg tablet (Classic ) 1 tab PO QDAY 90 days #90 tabs 08/16/25 [Rx Confirmed 10/16/25] Immunizations Immunizations Flu Vaccine in the Last 12 Months: No Flu Vaccine Exclusion Criteria: No Exclusion Criteria Care OB Visit Log OB Flowsheet Initial Weight: Not Recorded Date <del>?</del> EGA Weight BP Alb Glu CTX Pres Fundal ht FHR Mov Dilation Station Effacement Hx Notes Visit Note 06/15/25 <del>?</del> 18w 0d 88.224 kg 119/83 absent unknown 145 - Toshia Reich is a female presenting for routine care follow-up. - She reports that pain she was previously experiencing is now better and denies current pain. - Patient reports the baby is active. - She denies contractions, cramping, or other issues. - Genetic testing to be performed - Gender testing to be performed - Glucose test ordered - patient to fast for at least 8 hours prior to test - High-level ultrasound referral placed for [place] (approximately one month out, patient will be called) - vitamins prescribed with multiple refills to [facility] - Lab orders to be provided - Follow-up appointment scheduled in one month - After next visit, appointments will become every 2 weeks 07/02/25 <del>?</del> 20w 3d 87.09 kg 116/78 absent unknown 162 20w3d with LOWELL 11/16/25 by early US, presents with prior RUQ pain prompting ER visit to [facility], where no imaging or labs were done. Denies ongoing pain, nausea, or GI symptoms. FHR 164, no other complaints. Plan: Obtain [place] US report, genetic testing to follow once dates confirmed, sign records release; refer to ER if RUQ pain recurs for GB US and OB scan; f/u in 4wks. 08/16/25 <del>?</del> 26w 6d 89.471 kg 121/81 absent unknown 27 155 - Toshia Reich is here for a routine visit. - She reports experiencing pressure in the lower part of her abdomen, which is attributed to pressure from the baby's head. - She denies any contractions or other problems. - She denies burning with urination. - She reports taking vitamins as prescribed. - Laboratory test to be completed 1-2 days before next appointment in 2 weeks - Continue vitamins - Follow up in 2 weeks 10/16/25 <del>?</del> 35w 4d 95.368 kg 120/83 absent unknown 35 156 - She reports the baby is active. - She denies leaking, bleeding, or other problems. - She reports clear mucus discharge, which she was told is completely normal. - She denies any pain or contractions. - Weekly visits starting now at 34 weeks gestation - Check for cervical dilation at 39 weeks (one week before due date) - Vaginal culture performed today - Patient instructed to go to [facility] 4th floor for any contractions or labor concerns (31/05 availability) - Levothyroxine 25mcg continued LOWELL Calculator Estimated Delivery Date Method Current WG Current Estimate 11/16/25 LMP (Certain) 35w 5d Other Estimates 11/10/25 Ultrasound #1 36w 4d Office Procedures [facility] Clinic LOC & Office Proc's Nursing/Assessment Patient Status: Established Patient OB Clinic Nursing Assessment: Medication Reconciliation, Update PMH in EMR and Vital Signs OB Clinic Coordination of Care: Complex Care and Chronic Disease 1-5, Education Complex Pt/Fam, Consent,records obtained, informed consent, Lab and Imaging orders, Results/Orders obtained and Staff clarify orders Special Needs: Heart tones Miscellaneous Interventions: Culture Specimen Collection Established Patient Charge Established Patient Point Assignment: 155 Established Patient Point Charge: EP Level 4 (120-155) Assessment & Plan Diagnosis / Problem List (1) Supervision of high risk , unspecified, first trimester: Status: Acute Plan Assessment 34-week patient presenting for routine visit. heart rate is 165 bpm, which is within normal limits. Patient reports clear mucus discharge, which is normal for gestational age. No complaints of leaking, bleeding, or other problems. activity is reported as normal by patient. Plan - Weekly visits starting now at 34 weeks gestation - Check for cervical dilation at 39 weeks (one week before due date) - Vaginal culture performed today - Patient instructed to go to [facility] 4th floor for any contractions or labor concerns (31/05 availability) - Levothyroxine 25mcg continued 1. Progress Reviewed gestational age (34 weeks), growth, and heart rate (165 bpm, normal). Planned frequent visits (weekly from now on). 2. Instructed patient to monitor movements and report decreases immediately. 3. Testing Counseled on routine third-trimester labs per guidelines. Discussed potential need for ultrasound or monitoring based on risk factors. 4. Preeclampsia Precaution Educated on preeclampsia signs: severe headache, vision changes, right upper quadrant pain, sudden swelling. Advised urgent reporting of symptoms and discussed blood pressure monitoring if high risk. 5. Labor Precautions Reviewed labor signs: regular contractions, pelvic pressure, back pain, bleeding, or fluid leakage. Instructed to seek immediate care for these symptoms at [facility] 4th floor (available 31/05). 6. Lifestyle and Delivery Preparation Reinforced vitamins, nutrition, and safe activity. Discussed plan, pain management, and . Advised on labor preparation (e.g., hospital bag) and expectations. Plan to check for dilation at 39 weeks. 7. Psychosocial Support Assessed emotional well-being and offered resources for mental health or parenting support.
== END 2025-10-16 16:17 | disposition home or self-care (01) ==
LOC: HODSOBC 15:19
PROVIDERS: Supervising Provider Obstetrics & Gynecology; Visit Provider Obstetrics & Gynecology
DX: O09.93 Supervision of high risk pregnancy, unspecified, third trimester (principal); Z3A.35 35 weeks gestation of pregnancy
CPT/HCPCS: 99214; G0463

== ENCOUNTER 2025-11-06 13:55 | Outpatient (AMB) | payer MEDICAID, SELFPAY ==
[2025-11-06 14:15] VITALS: BP 125/83; PULSE 96; RESP 18; TEMP 36.8; O2SAT 98; BMI 38.2
--- NOTE | 2025-11-06 14:15 | OBCLNT_ITS ---
Vital Signs 11/06/25 14:15 Height 1.6 m Height Method Stated Weight 97.749 kg Weight Measurement Method Standing Scale BMI 38.2 BP 125/83 Blood Pressure Source Automatic Cuff Blood Pressure Location Right Upper Arm Position Sitting Respiration 18 Pulse 96 Pulse Source Monitor Temp 98.3 F Temp Source Temporal Artery Scan Pulse Oximetry (%) 98 Oxygen Delivery Method Room Air Allergies/Home Meds Allergies & Medications Allergies No Known Allergies Allergy (Verified 11/06/25 14:21) Medication Reconciliation vits no.126-ferrous fum 28 mg iron-folic acid 800 mcg tablet (Classic ) tab PO 06/15/25 [History Confirmed 11/06/25] vits no.126-ferrous fum 28 mg iron-folic acid 800 mcg tablet (Classic ) 1 tab PO QDAY 90 days #90 tabs 08/16/25 [Rx Confirmed 11/06/25] Immunizations Immunizations Flu Vaccine in the Last 12 Months: No Flu Vaccine Exclusion Criteria: No Exclusion Criteria Care OB Visit Log OB Flowsheet Initial Weight: Not Recorded Date -?-?-?-?-?-?-?-?-?-?-?-?- EGA Weight BP Alb Glu CTX Pres Fundal ht FHR Mov Dilation Station Effacement Hx Notes Visit Note 06/15/25 -?-?-?-?-?-?-?-?-?-?-?-?- 18w 0d 88.224 kg 119/83 absent unknown 145 - Toshia Reich is a female presenting for routine care follow-up. - She reports that pain she was previous ly experiencing is now better and denies current pain. - Patient reports the baby is active. - She denies contractions, cramping, or other issues. - Genetic testing to be performed - Gender testing to be performed - Glucose test ordered - patient to fast for at least 8 hours prior to test - High-level ultrasound referral placed for [place] (approximately one month out, patient will be called) - vitamins prescribed with mult iple refills to [facility] - Lab orders to be provided - Follow-up appointment scheduled in one month - After next visit, appointments will be come every 2 weeks 07/02/25 -?-?-?-?-?-?-?-?-?-?-?-?- 20w 3d 87.09 kg 116/78 absent unknown 162 20w3d with LOWELL 11/16/25 by early US, presents with prior RUQ pain prompting ER visit to [facility], where no imaging or labs were done. Denies ongoing pain, nausea, or GI symptoms. FHR 164, no other complaints. Pl an: Obtain [place] US report, genetic testing to follow once dates confirmed, sign records release; refer to ER if RUQ pain recurs for GB US and OB scan; f/u in 4wks. 08/16/25 -?-?-?-?-?-?-?-?-?-?-?-?- w 6d 89.471 kg 121/81 absent unknown 27 155 - Toshia Reich is here for a routine visit. - She reports experiencing pressure in t he lower part of her abdomen, which is attributed to pressure from the baby's head. - She denies any contractions or other p roblems. - She denies burning with urination. - She reports taking vitamins as prescribed. - Laboratory test to be completed 1-2 days before next appointment in 2 weeks - Continue vitamins - Follow up in 2 weeks 09/13/25 -?-?-?-?-?-?-?-?-?-?-?-?- 30w 6d 92.533 kg 116/78 absent unknown 31 146 - Toshia Reich is here for a routine visit. - She reports experiencing pressure in t he lower part of her abdomen, which is attributed to pressure from the baby's head. - She denies any contractions or other p roblems. - She denies burning with urination. - She reports taking vitamins as prescribed. - Laboratory test to be completed 1-2 days before next appointment in 2 weeks - Continue vitamins - Follow up in 2 weeks 09/27/25 -?-?-?-?-?-?-?-?-?-?-?-?- 32w 6d 94.801 kg 113/78 absent unknown 32 145 - Toshia Reich is here for a routine visit. - She reports that the baby is moving we ll. - She denies contractions. - She reports leg pain described as musc le cramping. - She denies other problems. - Follow up in 2 weeks - Increase water intake for muscle cramp ing 10/16/25 -?-?-?-?-?-?-?-?-?-?-?-?- 35w 4d 95.368 kg 120/83 absent unknown 35 156 - She reports the baby is active. - She denies leaking, bleeding, or other problems. - She reports clear mucus discharge, whi ch she was told is completely normal. - She denies any pain or contractions. - Weekly visits starting now at 34 weeks gestation - Check for cervical dilation at 39 week s (one week before due date) - Vaginal culture performed today - Patient instructed to go to [facility] 4th floor for any contractions or labor concerns (31/05 availability) - Levothyroxine 25mcg continued 11/06/25 -?-?-?-?-?-?-?-?-?-?-?-?- 38w 4d 97.749 kg 125/83 absent unknown 39 155 - Patient is 4, para 3. - Patient reports that in previous pregn ancies she goes into labor spontaneously without requiring induction. - She describes her labor pattern as jonny ing some time, requiring augmentation during the process. - Patient had recent ultrasound performed in [place]. - Patient sent for complete OB ultrasound to assess for placenta previa - Further management depending on ultras ound results. Possible IOL at 40w/CS if previa LOWELL Calculator Estimated Delivery Date Method Current WG Current Estimate 11/16/25 LMP (Certain) 38w 4d Other Estimates 11/10/25 Ultrasound #1 39w 3d Office Procedures OBC Clinic LOC & Office Proc's Nursing/Assessment Patient Status: Established Patient OB Clinic Nursing Assessment: Medication Reconciliation, Update PMH in EMR and Vital Signs OB Clinic Coordination of Care: Complex Care and Chronic Disease 1-5, Education Complex Pt/Fam, Consent,records obtained, informed consent, Lab and Imaging orders, Results/Orders obtained and Staff clarify orders Special Needs: Heart tones Established Patient Charge Established Patient Point Assignment: 140 Established Patient Point Charge: EP Level 4 (120-155) Assessment & Plan Diagnosis / Problem List (1) Uterine size date discrepancy : Status: Acute (2) Supervision of high risk , unspecified, third trimester: Status: Acute Plan Problem List - at 38 weeks 4 days gestation - Question of placenta previa Assessment 36-year-old patient at 38 weeks 4 days gestation presenting for routine visit. Patient reports history of placenta previa diagnosed at outside ultrasound in [place], however review of ultrasound performed at this facility shows no evidence of placenta previa. heart rate is reassuring at 155 bpm. Patient has history of spontaneous labor onset in previous pregnancies with prolonged labor course requiring augmentation. Plan - Patient sent for complete OB ultrasound to assess for placenta previa - Further management depending on ultrasound results 1. Progress Reviewed gestational age (38 weeks 4 days), growth, and heart rate (155 bpm). Planned frequent visits (every 2 weeks until 36 weeks, then weekly). 2. Instructed patient to monitor movements and report decreases immediately. 3. Testing Counseled on routine third-trimester labs per guidelines. Discussed potential need for ultrasound or monitoring based on risk factors. Patient sent for complete OB ultrasound to assess placenta previa concern. 4. Preeclampsia Precaution Educated on preeclampsia signs: severe headache, vision changes, right upper quadrant pain, sudden swelling. Advised urgent reporting of symptoms and discussed blood pressure monitoring if high risk. 5. Labor Precautions Reviewed labor signs: regular contractions, pelvic pressure, back pain, bleeding, or fluid leakage. Instructed to seek immediate care for these symptoms. 6. Lifestyle and Delivery Preparation Reinforced vitamins, nutrition, and safe activity. Discussed plan, pain management, and . Advised on labor preparation (e.g., hospital bag) and expectations. 7. Psychosocial Support Assessed emotional well-being and offered resources for mental health or parenting support.
== END 2025-11-06 14:32 | disposition home or self-care (01) ==
LOC: HODSOBC 13:55
PROVIDERS: Supervising Provider Obstetrics & Gynecology; Visit Provider Obstetrics & Gynecology
DX: O09.893 Supervision of other high risk pregnancies, third trimester (principal); O26.843 Uterine size-date discrepancy, third trimester; Z3A.38 38 weeks gestation of pregnancy
CPT/HCPCS: 99214; G0463